=== PATIENT | female | born 1965 | race Caucasian/White ===

== ENCOUNTER 2016-12-06 08:12 | Emergency (ER) | payer OTHER ==
[2016-12-06 08:17] VITALS: RESP 16
[2016-12-06] MEDS ORDERED: ASPIRIN 81 MG PO STA (08:33)
[2016-12-06] MEDS ORDERED: NITROGLYCERIN OINT 1 INCH/GM PACKET TOPICAL STA (08:33)
--- NOTE | 2016-12-06 08:36 | ED ---
General Adult HPI - General Chief complaint: Chest Pain Stated complaint: CHEST PAIN Time Seen by Provider: 12/06/16 08:28 Source: patient, RN notes reviewed Mode of arrival: ambulatory Limitations: no limitations - History of Present Illness Initial comments: Patient is a pleasant 51-year-old female presenting to the emergency Department with chest discomfort. Symptoms have been occurring over the past 4 days. Patient does have episodes of chest discomfort lasting up to a half a minute. Discomfort is typically sharp. Patient is unclear if she has associated dyspnea. Patient states sometimes she is sweaty however sometimes it is normal for her. No specific nausea. No history of similar symptoms previously. Patient is currently symptom-free. Discomfort is left sternal region. - Related Data Home Medications Medication Instructions Recorded Confirmed Levothyroxine Sodium [Synthroid] 25 mcg PO DAILY 02/19/15 12/06/16 ALPRAZolam [Xanax] 0.25 mg PO DAILY PRN 12/06/16 12/06/16 Biotin 5 mg PO PC-LUNCH 12/06/16 12/06/16 Calcium Carbonate [Calcium] 600 mg PO PC-LUNCH 12/06/16 12/06/16 Cholecalciferol [Vitamin D3] 1,000 unit PO PC-LUNCH 12/06/16 12/06/16 Cyclobenzaprine [Flexeril] 10 mg PO HS PRN 12/06/16 12/06/16 Ferrous Sulfate [Feosol] 325 mg PO PC-LUNCH 12/06/16 12/06/16 Loratadine-Pseudoeph 10-240 mg 1 tab PO DAILY 12/06/16 12/06/16 [Claritin-D 24 Hour] Multivitamins, Thera [Multivitamin 1 tab PO PC-LUNCH 12/06/16 12/06/16 (formulary)] [place]-3 Fatty Acids/Fish Oil [Fish 1 cap PO PC-LUNCH 12/06/16 12/06/16 Oil 1,000 mg Softgel] Vitamin B Complex 1 cap PO PC-LUNCH 12/06/16 12/06/16 Allergies Allergy/AdvReac Type Severity Reaction Status Date / Time Sulfa (Sulfonamide Allergy Rash/Hives Verified 12/06/16 09:00 Antibiotics) Review of Systems ROS Statement: Those systems with pertinent positive or pertinent negative responses have been documented in the HPI. ROS Other: All systems not noted in ROS Statement are negative. Constitutional: Denies: fever Eyes: Denies: eye pain ENT: Denies: ear pain Respiratory: Denies: cough Cardiovascular: Reports: chest pain Endocrine: Denies: fatigue Gastrointestinal: Denies: abdominal pain, nausea Genitourinary: Denies: dysuria Musculoskeletal: Denies: as per HPI Skin: Denies: rash Neurological: Denies: weakness Past Medical History Past Medical History: Thyroid Disorder History of Any Multi-Drug Resistant Organisms: None Reported Past Surgical History: Section, Tubal Ligation Additional Past Surgical History / Comment(s): right carpal tunnel sx Past Psychological History: Anxiety Smoking Status: Never smoker Past Alcohol Use History: None Reported Past Drug Use History: None Reported General Exam Limitations: no limitations General appearance: alert, in no apparent distress Head exam: Present: atraumatic Eye exam: Present: normal appearance, PERRL ENT exam: Present: normal oropharynx Neck exam: Present: normal inspection Respiratory exam: Present: normal lung sounds bilaterally. Absent: chest wall tenderness Cardiovascular Exam: Present: regular rate, normal rhythm Expanded Peripheral pulses: 2+: Radial (R), Radial (L), Dorsalis Pedis (R), Dorsalis Pedis (L) GI/Abdominal exam: Present: soft. Absent: tenderness Extremities exam: Present: normal inspection. Absent: pedal edema, calf tenderness Neurological exam: Present: alert Psychiatric exam: Present: normal affect, normal mood Skin exam: Present: normal color Course Vital Signs 12/06/16 08:14 Temperature 98.6 F Pulse Rate 85 Respiratory 16 Rate Blood Pressure 122/70 O2 Sat by Pulse 100 Oximetry EKG Findings - EKG Comments: EKG Findings:: Normal sinus rhythm 88. OR 124. QRS 88. QT 332. QTC 425. Left axis. Low QRS voltage. No acute ST change. Medical Decision Making - Medical Decision Making Patient reexamined and resting comfortably in bed. Patient states she does not take any anticoagulation other than baby aspirin just the past few days. Patient is updated regarding results including elevation of INR and need for further evaluation regarding this. Patient is advised for admission for repeat testing and medicine and cardiology evaluation. Patient states she is to go home to diamond picker Her daughter. Patient is made aware of limitations of tests in the emergency department and does show buccal decision making. Patient is made aware that heart attack and risk for heart attack in the near future has not completely ruled out at this time. Patient is agreeable to follow-up with her doctor as well as her housecleaner floor. - Lab Data Result diagrams: 12/06/16 08:50 12/06/16 08:50 Lab Results 12/06/16 12/06/16 12/06/16 Range/Units 08:50 08:50 08:50 WBC 4.2 (3.8-10.6) k/uL RBC 4.37 (3.80-5.40) m/uL Hgb 13.5 (11.4-16.0) gm/dL Hct 42.2 (34.0-46.0) % MCV 96.4 (80.0-100.0) fL MCH 30.8 (25.0-35.0) pg MCHC 32.0 (31.0-37.0) g/dL RDW 12.4 (11.5-15.5) % Plt Count 332 (150-450) k/uL Neutrophils % 55 % Lymphocytes % 33 % Monocytes % 5 % Eosinophils % 5 % Basophils % 1 % Neutrophils # 2.3 (1.3-7.7) k/uL Lymphocytes # 1.4 (1.0-4.8) k/uL Monocytes # 0.2 (0-1.0) k/uL Eosinophils # 0.2 (0-0.7) k/uL Basophils # 0.0 (0-0.2) k/uL PT (9.0-12.0) sec INR (<1.2) APTT (22.0-30.0) sec D-Dimer (<0.60) mg/L FEU Sodium 142 (137-145) mmol/L Potassium 4.2 (3.5-5.1) mmol/L Chloride 107 (98-107) mmol/L Carbon Dioxide 23 (22-30) mmol/L Anion Gap 12 mmol/L BUN 12 (7-17) mg/dL Creatinine 0.75 (0.52-1.04) mg/dL Est GFR (MDRD) Af Amer >60 (>60 ml/min/1.73 sqM) Est GFR (MDRD) Non-Af >60 (>60 ml/min/1.73 sqM) Glucose 76 (74-99) mg/dL Calcium 9.8 (8.4-10.2) mg/dL Magnesium 2.0 (1.6-2.3) mg/dL Total Bilirubin 0.4 (0.2-1.3) mg/dL AST 28 (14-36) U/L ALT 26 (9-52) U/L Alkaline Phosphatase 54 (38-126) U/L Total Creatine Kinase 94 (30-135) U/L CK-MB (CK-2) 0.6 (0.0-2.4) ng/mL CK-MB (CK-2) Rel Index 0.6 Troponin I <0.012 (0.000-0.034) ng/mL Total Protein 7.4 (6.3-8.2) g/dL Albumin 4.2 (3.5-5.0) g/dL Urine Color Urine Appearance (Clear) Urine pH (5.0-8.0) Ur Specific [place] (1.001-1.035) Urine Protein (Negative) Urine Glucose (UA) (Negative) Urine Ketones (Negative) Urine Blood (Negative) Urine Nitrite (Negative) Urine Bilirubin (Negative) Urine Urobilinogen (<2.0) mg/dL Ur Leukocyte Esterase (Negative) 12/06/16 12/06/16 Range/Units 08:50 08:50 WBC (3.8-10.6) k/uL RBC (3.80-5.40) m/uL Hgb (11.4-16.0) gm/dL Hct (34.0-46.0) % MCV (80.0-100.0) fL MCH (25.0-35.0) pg MCHC (31.0-37.0) g/dL RDW (11.5-15.5) % Plt Count (150-450) k/uL Neutrophils % % Lymphocytes % % Monocytes % % Eosinophils % % Basophils % % Neutrophils # (1.3-7.7) k/uL Lymphocytes # (1.0-4.8) k/uL Monocytes # (0-1.0) k/uL Eosinophils # (0-0.7) k/uL Basophils # (0-0.2) k/uL PT 19.3 H (9.0-12.0) sec INR 2.0 H (<1.2) APTT 39.1 H (22.0-30.0) sec D-Dimer 0.30 (<0.60) mg/L FEU Sodium (137-145) mmol/L Potassium (3.5-5.1) mmol/L Chloride (98-107) mmol/L Carbon Dioxide (22-30) mmol/L Anion Gap mmol/L BUN (7-17) mg/dL Creatinine (0.52-1.04) mg/dL Est GFR (MDRD) Af Amer (>60 ml/min/1.73 sqM) Est GFR (MDRD) Non-Af (>60 ml/min/1.73 sqM) Glucose (74-99) mg/dL Calcium (8.4-10.2) mg/dL Magnesium (1.6-2.3) mg/dL Total Bilirubin (0.2-1.3) mg/dL AST (14-36) U/L ALT (9-52) U/L Alkaline Phosphatase (38-126) U/L Total Creatine Kinase (30-135) U/L CK-MB (CK-2) (0.0-2.4) ng/mL CK-MB (CK-2) Rel Index Troponin I (0.000-0.034) ng/mL Total Protein (6.3-8.2) g/dL Albumin (3.5-5.0) g/dL Urine Color Colorless Urine Appearance Clear (Clear) Urine pH 6.5 (5.0-8.0) Ur Specific [place] 1.002 (1.001-1.035) Urine Protein Negative (Negative) Urine Glucose (UA) Negative (Negative) Urine Ketones Negative (Negative) Urine Blood Negative (Negative) Urine Nitrite Negative (Negative) Urine Bilirubin Negative (Negative) Urine Urobilinogen <2.0 (<2.0) mg/dL Ur Leukocyte Esterase Negative (Negative) - Radiology Data Radiology results: image reviewed (Chest x-ray shows no acute process) Disposition Clinical Impression: Chest pain Disposition: Left Against Medical Advice Instructions: Chest Pain (ED) Additional Instructions: Please follow-up with your primary care physician and housecleaner floor within the next day for recheck and further evaluation. Also have your doctor recheck coagulation studies, INR secondary to elevation. Return for increased pain, worsening or change in symptoms, difficulty breathing, or any other concerns. You are leaving AGAINST MEDICAL ADVICE. Referrals: Matilda,Aman, MD [Primary Care Provider] - 1-2 days Time of Disposition: 09:56
[2016-12-06 09:12] LABS: Basophils % (A) 1 %; CHCM 32.3; Eosinophils # (A) 0.2 k/uL (0-0.7); Eosinophils % (A) 5 %; HCT 42.2 % (34.0-46.0); HDW 2.16; HGB 13.5 gm/dL (11.4-16.0); Luc # (Auto) 0.06; Luc % (Auto) 1; Lymphocytes # (A) 1.4 k/uL (1.0-4.8); Lymphocytes % (A) 33 %; MCH 30.8 pg (25.0-35.0); MCV 96.4 fL (80.0-100.0); Mean Platelet Volume 7.1; Monocytes # (A) 0.2 k/uL (0-1.0); Monocytes % (A) 5 %; Neutrophils # (A) 2.3 k/uL (1.3-7.7); Neutrophils % (A) 55 %; RBC 4.37 m/uL (3.80-5.40); RDW 12.4 % (11.5-15.5); WBC 4.2 k/uL (3.8-10.6); WBC (Perox) 4.32
--- NOTE | 2016-12-06 09:21 | XR ---
EXAMINATION TYPE: XR chest 2V DATE OF EXAM: 12/06/2016 COMPARISON: NONE HISTORY: Chest pain and shortness of breath TECHNIQUE: Frontal and lateral views of the chest are obtained. FINDINGS: There is no focal air space opacity, pleural effusion, or pneumothorax seen. The cardiac silhouette size is within normal limits. The osseous structures are intact. Minimal biapical pleura l-parenchymal thickening is noted. IMPRESSION: No acute cardiopulmonary process.
[2016-12-06 09:23] LABS: ALT 26 U/L (9-52); AST 28 U/L (14-36); Alkaline Phosphatase 54 U/L (38-126); Anion Gap 12 mmol/L; Blood Urea Nitrogen 12 mg/dL (7-17); Calcium 9.8 mg/dL (8.4-10.2); Carbon Dioxide 23 mmol/L (22-30); Chloride 107 mmol/L (98-107); Glucose 76 mg/dL (74-99); Non-African American GFR(MDRD) >60 (>60 ml/min/1.73 sqM); Potassium 4.2 mmol/L (3.5-5.1); Sodium 142 mmol/L (137-145); Total Bilirubin 0.4 mg/dL (0.2-1.3); Total Protein 7.4 g/dL (6.3-8.2)
[2016-12-06 09:26] LABS: Creatine Kinase 94 U/L (30-135)
[2016-12-06 09:30] LABS: Partial Thromboplastin Time 39.1 sec (22.0-30.0); Prothrombin Time 19.3 sec (9.0-12.0)
[2016-12-06 09:37] LABS: Appearance,Urine Clear (Clear); Bilirubin,Urine Negative (Negative); Glucose,Urine (UA) Negative (Negative); Ketones,Urine Negative (Negative); Leukocyte Esterase,Urine Negative (Negative); Nitrite,Urine Negative (Negative); PH, Urine 6.5 (5.0-8.0); Protein,Urine Negative (Negative); Specific Gravity,Urine 1.002 (1.001-1.035); UA Billing (MACRO vs. MICRO) CHEM; Urobilinogen,Urine <2.0 mg/dL (<2.0)
[2016-12-06 09:38] LABS: Creatine Kinase MB 0.6 ng/mL (0.0-2.4); Troponin I <0.012 ng/mL (0.000-0.034)
[2016-12-06 11:03] VITALS: BP 108/64; PULSE 77; TEMP 98.4
== END 2016-12-06 11:02 | disposition left against medical advice (07) ==
LOC: EC 08:12
DX: R07.9 Chest pain, unspecified (principal); E07.9 Disorder of thyroid, unspecified; Z79.899 Other long term (current) drug therapy; Z88.2 Allergy status to sulfonamides
CPT/HCPCS: 36415; 71020; 80053; 81003; 82550; 82553; 83735; 84484; 85025; 85379; 85610; 85730; 93005; 99285

== ENCOUNTER → 2017-01-03 | Outpatient (CLI) | payer OTHER ==
--- NOTE | 2017-01-03 17:08 | US ---
EXAMINATION TYPE: US MSK left ankle, posterior tibial tendon DATE OF EXAM: 01/03/2017 COMPARISON: NONE CLINICAL HISTORY: 51-year-old female with medial left foot pain for one month, evaluate for M76.821 P OSTERIOR TIBIAL TENDON TEAR. Technique: Multiple sonographic images of the medial left ankle targeting the posterior tibial tendon . FINDINGS: There is heterogeneity and hypoechoic appearance to the insertion of the posterior tibial tendon onto the navicular. Some bright speckles are present and small amount of adjacent fluid along the inferio r insertional fibers. Remainder of the posterior tibial tendon shows normal caliber and normal fibril lar pattern. IMPRESSION: Insertional posterior tibial tendinosis and suggestion of a tiny insertional tear of some of the infe rior most fibers at the navicular.
== END | disposition home or self-care (01) ==
LOC: RADUSWWP 09:35
PROVIDERS: ATTEND Podiatrist Foot & Ankle Surgery
DX: M76.822 Posterior tibial tendinitis, left leg (principal)

== ENCOUNTER → 2017-03-17 | Outpatient (CLI) | payer OTHER ==
--- NOTE | 2017-03-17 09:35 | US ---
EXAMINATION TYPE: US pelvic complete DATE OF EXAM: 03/17/2017 COMPARISON: NONE CLINICAL HISTORY: R10.2 Pelvic Pain; Midline pelvic pain x 2 weeks; G4P; C section x ; LMP < one year ago September 2016 TECHNIQUE: Transabdominal (TA) Date of LMP: September 2016 EXAM MEASUREMENTS: Uterus: 10.5 x 5.7 x 4.9 cm Endometrial Stripe: 0.9 cm Right Ovary: 2.6 x 1.6 x 1.7 cm Left Ovary: 2.0 x 1.6 x 0.9 cm 1. Uterus: Anteverted 2. Endometrium: unable to correlate with LMP 5 months ago as is not truly post menopause 3. Right Ovary: Dominant ovarian follicle = 1.5 x 1.0 x 1.2cm 4. Left Ovary: small follicles are seen Spectral, color and waveform Doppler imaging shows good arterial and venous flow within the ovaries ; there is no evidence for ovarian torsion. 5. Bilateral Adnexa: wnl 6. Posterior cul-de-sac: wnl Nabothian cyst is incidentally noted within the cervix. IMPRESSION: Endometrial thickness is within normal limits for a premenopausal female but increased th ickness for a postmenopausal female. Therefore this is borderline and a perimenopausal female. If the re is further concern or vaginal bleeding direct visualization or sonohysterogram could be performed for further evaluation.
== END | disposition home or self-care (01) ==
LOC: RADUSWWP 07:00
PROVIDERS: ATTEND Obstetrics & Gynecology
DX: N95.9 Unspecified menopausal and perimenopausal disorder (principal); R93.8 Abnormal findings on diagnostic imaging of other specified body structures
CPT/HCPCS: 76856

== ENCOUNTER 2017-06-18 18:11 | Emergency (ER) | payer OTHER ==
[2017-06-18 18:45] VITALS: RESP 18
--- NOTE | 2017-06-18 19:19 | XR ---
EXAMINATION TYPE: XR ankle complete RT, XR foot complete RT DATE OF EXAM: 06/18/2017 COMPARISON: NONE HISTORY: Pain TECHNIQUE: Frontal, lateral and oblique images of the right ankle are obtained. COMPARISON: None. FINDINGS: There is no acute fracture/dislocation evident. The joint spaces appear within normal richards its. Lateral soft tissue swelling noted. IMPRESSION: There is no acute fracture or dislocation seen. EXAMINATION TYPE: XR ankle complete RT, XR foot complete RT DATE OF EXAM: 06/18/2017 CLINICAL HISTORY: pain TECHNIQUE: Frontal, lateral and oblique images of the right foot are obtained. COMPARISON: None. FINDINGS: There is no acute fracture/dislocation evident. The joint spaces appear within normal richards its. The overlying soft tissue appears unremarkable. IMPRESSION: There is no acute fracture or dislocation. ICD 10 NO FRACTURE, INITIAL EVALUATION
[2017-06-18] MEDS ORDERED: KETOROLAC 30 MG/ML 1 ML VIAL IM STA (19:36)
--- NOTE | 2017-06-18 19:36 | ED ---
General Adult HPI - General Chief complaint: Extremity Injury, Lower Stated complaint: Ankle injury Time Seen by Provider: 06/18/17 19:08 Source: patient, RN notes reviewed Mode of arrival: ambulatory Limitations: no limitations - History of Present Illness Initial comments: 52-year-old female presents to the emergency department for a chief complaint of right ankle injury one hour ago. Patient states she was walking down her last step when she rolled her ankle. Patient denies falling or hitting her head. Patient denies pain in the knee or hip. Patient states she has mild pain in the foot. Patient has never had surgery on the ankle. Patient denies any neck or back pain. Patient denies any headache or visual changes. Patient denies any other complaints at this time such as shortness of breath, chest pain , abdominal pain, nausea or vomiting. - Related Data Home Medications Medication Instructions Recorded Confirmed Levothyroxine Sodium [Synthroid] 25 mcg PO DAILY 02/19/15 12/06/16 ALPRAZolam [Xanax] 0.25 mg PO DAILY PRN 12/06/16 12/06/16 Biotin 5 mg PO PC-LUNCH 12/06/16 12/06/16 Calcium Carbonate [Calcium] 600 mg PO PC-LUNCH 12/06/16 12/06/16 Cholecalciferol [Vitamin D3] 1,000 unit PO PC-LUNCH 12/06/16 12/06/16 Cyclobenzaprine [Flexeril] 10 mg PO HS PRN 12/06/16 12/06/16 Ferrous Sulfate [Feosol] 325 mg PO PC-LUNCH 12/06/16 12/06/16 Loratadine-Pseudoeph 10-240 mg 1 tab PO DAILY 12/06/16 12/06/16 [Claritin-D 24 Hour] Multivitamins, Thera [Multivitamin 1 tab PO PC-LUNCH 12/06/16 12/06/16 (formulary)] [place]-3 Fatty Acids/Fish Oil [Fish 1 cap PO PC-LUNCH 12/06/16 12/06/16 Oil 1,000 mg Softgel] Vitamin B Complex 1 cap PO PC-LUNCH 12/06/16 12/06/16 Allergies Allergy/AdvReac Type Severity Reaction Status Date / Time Sulfa (Sulfonamide Allergy Rash/Hives Verified 12/06/16 09:00 Antibiotics) Review of Systems ROS Statement: Those systems with pertinent positive or pertinent negative responses have been documented in the HPI. ROS Other: All systems not noted in ROS Statement are negative. Past Medical History Past Medical History: Thyroid Disorder History of Any Multi-Drug Resistant Organisms: None Reported Past Surgical History: Section, Tubal Ligation Additional Past Surgical History / Comment(s): right carpal tunnel sx Past Psychological History: Anxiety Smoking Status: Never smoker Past Alcohol Use History: None Reported Past Drug Use History: None Reported General Exam Limitations: no limitations General appearance: alert, in no apparent distress Respiratory exam: Present: normal lung sounds bilaterally. Absent: respiratory distress, wheezes, rales, rhonchi, stridor Cardiovascular Exam: Present: regular rate, normal rhythm, normal heart sounds. Absent: systolic murmur, diastolic murmur, rubs, gallop, clicks Extremities exam: Present: tenderness (Tenderness to the lateral aspect of the right ankle on the lateral malleolus. No medial malleolus tenderness. No navicular or fifth metatarsal tenderness. No tenderness in the tib-fib knee or the rest of the foot.), normal capillary refill (Refill less than 2 seconds and pedal dull pulse 2+ in the right lower extremity), other (Patient has moderate swelling and ecchymosis noted on the lateral malleolus of the right ankle). Absent: full ROM (Patient has limited flexion and medial and lateral deviation in the right ankle), calf tenderness (No tenderness in the calf. No redness swelling or warmth.) Course Vital Signs 06/18/17 18:40 Temperature 98.2 F Pulse Rate 88 Respiratory 18 Rate Blood Pressure 119/78 O2 Sat by Pulse 99 Oximetry Procedures - Procedures Initial comment: Neurovascular intact before splint application Indication:ankle sprain Type: short leg right stirrup Wounds: no abrasions or lacerations underneath splint Neurovascular status: patient has sensation and movement of digits extending outside the splint, there is no cyanosis, capillary refill < 2 seconds Follow-up: patient given number for orthopedics and instructed to phone to make an appointment. Patient aware she can return to the Emergency Department if any difficulties. Medical Decision Making - Medical Decision Making 52-year-old female presents to the emergency department for a chief complaint of right lower extremity injury. Patient rolled her ankle about an hour ago coming down her stairs. On exam there is moderate swelling and ecchymosis noted of the lateral malleolus. Tenderness of the lateral malleolus. No tenderness of the medial malleolus or the rest of the foot or right lower extremity. Patient is not able to walk on it. Patient has limited range of motion of the ankle. Neurovascular intact including sensation. X-ray demonstrates There is no acute fracture or dislocation evident in the right ankle. Lateral soft tissue swelling noted. X-ray of the right foot demonstrates no acute fracture or dislocation. Patient was splinted in a short leg stirrup splint. Neurovascular intact before and after splint applied. Patient was given a shot of Toradol in the emergency department. She was educated to only take Tylenol for the rest of the night and to continue with Tylenol and Motrin tomorrow. She was educated to elevated rest and ice it. She will follow-up with orthopedics in one to 2 days. She will return to the emergency Department if she has any worsening symptoms. Disposition Clinical Impression: Ankle sprain Disposition: HOME SELF-CARE Condition: Good Instructions: Ankle Sprain (ED) Additional Instructions: Please take Tylenol for the rest of the night for pain. You may take Motrin and Tylenol tomorrow. Please follow-up with orthopedics in one to 2 days. Please remember to ice, rest, and elevate the affected leg. Return to the emergency department if you have any worsening symptoms. Is patient prescribed a controlled substance at d/c from ED?: No Referrals: Aman Grey MD [Primary Care Provider] - 1-2 days Taawnda Bai MD [STAFF PHYSICIAN] - 1-2 days Time of Disposition: 19:38
[2017-06-18 19:58] VITALS: BP 115/73; PULSE 82; TEMP 97.9
== END 2017-06-18 19:54 | disposition home or self-care (01) ==
LOC: EC 18:11
DX: S93.401A Sprain of unspecified ligament of right ankle, initial encounter (principal); E07.9 Disorder of thyroid, unspecified; Z79.899 Other long term (current) drug therapy; Z88.2 Allergy status to sulfonamides; Z53.29 Procedure and treatment not carried out because of patient's decision for other reasons; X50.1XXA Overexertion from prolonged static or awkward postures, initial encounter; Y93.01 Activity, walking, marching and hiking; Y92.009 Unspecified place in unspecified non-institutional (private) residence as the place of occurrence of the external cause
CPT/HCPCS: 73610; 73630; 99283; 29515; 96372; J1885

== ENCOUNTER → 2017-08-04 | Outpatient (CLI) | payer OTHER ==
--- NOTE | 2017-08-04 15:43 | US ---
EXAMINATION TYPE: US pelvic complete DATE OF EXAM: 08/04/2017 COMPARISON: US CLINICAL HISTORY: R10.2 Pelvic pain,N83.20 Previous ovarian cyst. Pt states ongoing pelvic pain, prev ious ovarian cyst TECHNIQUE: Transabdominal (TA). Date of LMP: September 2016 EXAM MEASUREMENTS: Uterus: 10.7 x 5.7 x 6.2 cm Endometrial Stripe: 0.9 cm with fluid in canal= 0.8 x 1.9 x 2.7 cm Right Ovary: 2.6 x 1.7 x 2.0 cm Left Ovary: 2.1 x 1.2 x 1.7 cm 1. Uterus: Anteverted Heterogeneous 2. Endometrium: fluid within canal, thickness abnormal for postmenopausal 3. Right Ovary: wnl, cyst resolved 4. Left Ovary: wnl 5. Bilateral Adnexa: wnl 6. Posterior cul-de-sac: wnl IMPRESSION: 1. Again abnormal endometrial thickness is noted for a postmenopausal female and fluid is seen within the endometrial canal, also abnormal for a postmenopausal female. Direct visualization is recommende d. 2. Resolution of the previously seen right ovarian follicle.
== END | disposition home or self-care (01) ==
LOC: RADUSWWP 14:45
PROVIDERS: ATTEND Obstetrics & Gynecology
DX: R93.8 Abnormal findings on diagnostic imaging of other specified body structures (principal); Z78.0 Asymptomatic menopausal state; R10.2 Pelvic and perineal pain
CPT/HCPCS: 76856

== ENCOUNTER → 2017-11-03 | Outpatient (CLI) | payer OTHER ==
--- NOTE | 2017-11-03 11:12 | CT ---
EXAMINATION TYPE: CT brain wo con DATE OF EXAM: 11/03/2017 COMPARISON: 12/15/2012 HISTORY: Headache and facial pain CT DLP: [address] of the brain was performed. The ventricles, basal cisterns and sulci overlying the cerebral convexities demonstrate a normal appe arance. There is no evidence for intracranial hemorrhage or sulcal effacement. No mass effects are seen. Osseous calvarium is intact. If symptoms persist consider MRI as clinically warranted. IMPRESSION: 1. No acute intracranial process is seen at this time.
== END | disposition home or self-care (01) ==
LOC: RADCTMAIN 10:19
PROVIDERS: ATTEND Physician Assistant
DX: R51 Headache (principal)
CPT/HCPCS: 70450

== ENCOUNTER → 2021-09-18 | Outpatient (CLI) | payer MEDICARE, OTHER ==
--- NOTE | 2021-09-19 05:31 | MR ---
EXAMINATION TYPE: MR knee LT wo con DATE OF EXAM: 09/18/2021 COMPARISON: None HISTORY: Left inner, outer and top of knee pain with swelling for 3 months. Multiplanar multiecho imaging of the left knee with no contrast. The anterior and posterior cruciate ligaments are intact. There is mild knee joint effusion. There is subcutaneous edema anterior to the patella. The collateral ligaments appear intact. There is joint e ffusion bulging me lateral collateral ligament. There is complex horizontal and vertical tear of the posterior horn medial meniscus with some thinnin g. There is minimal truncation of the posterior horn of the lateral meniscus. There is minor spurring of the femoral and tibial condyles. No evidence of a fracture. No bone edema. Patella appears intact . IMPRESSION: Knee joint effusion. Complex tear posterior horn medial meniscus. Horizontal and vertical tear customer solutions specialist ior horn lateral meniscus. No evidence of ligamentous tear. Subcutaneous edema.
== END | disposition home or self-care (01) ==
LOC: RADMRIMAIN 18:11
PROVIDERS: ATTEND Orthopaedic Surgery
DX: M23.322 Other meniscus derangements, posterior horn of medial meniscus, left knee (principal)

== ENCOUNTER 2022-04-06 07:18 | Day surgery (SDC) | payer MEDICARE, OTHER ==
[2022-04-02 17:31] VITALS: BMI 20.7
[~2022-04-06 07:18] MED LIST: LACTATED RINGERS 1,000 ML IV SCH
[2022-04-06 07:43] VITALS: TEMP 98
[2022-04-06] MEDS ORDERED: LACTATED RINGERS 1,000 ML IV ONE (07:45)
[2022-04-06] MEDS ORDERED: fentaNYL (PF) 50 MCG/ML 2 ML AMP ONE (09:02)
[2022-04-06] MEDS ORDERED: MIDAZOLAM 2 MG/2 ML VIAL ONE (09:02)
[2022-04-06] MEDS ORDERED: PROPOFOL 10 MG/ML 20 ML VIAL IV ONE (09:02)
--- NOTE | 2022-04-06 09:25 | P.PCN ---
Date of Procedure: 04/06/22 Procedure(s) Performed: BRIEF HISTORY: Patient is a 57-year-old pleasant white female scheduled for an elective colonoscopy as a part of a for colon cancer/positive cologuard. She also has family history of colon cancer diagnosed in her father at age 75. PROCEDURE PERFORMED: Colonoscopy. PREOPERATIVE DIAGNOSIS: Screening for colon cancer/family history of colon cancer/positive cologuard. IV sedation per Anesthesia. PROCEDURE: After informed consent was obtained, the patient, was brought into the endoscopy unit. IV sedation was administered by Anesthesia under continuous monitoring. Digital rectal examination was normal. Initially the Olympus CF-160 flexible video colonoscope was then inserted in the rectum, gradually advanced into the cecum without any difficulty. Careful examination was performed as the scope was gradually being withdrawn. Ileocecal valve and the appendiceal orifice were visualized and appeared normal. Prep was excellent. Mucosa of the cecum, ascending colon, transverse colon, descending colon, sigmoid colon, and rectum appeared normal. Scattered sigmoid diverticulosis seen. Retroflexion was performed in the rectum and small internal hemorrhoids were seen. The patient tolerated the procedure well. IMPRESSION: Normal-appearing colon from rectum to cecum no evidence of colorectal neoplasia Sigmoid diverticulosis and small internal hemorrhoids RECOMMENDATIONS: Findings of this examination were discussed with the patient as well as a family. He was advised to have a repeat screening colonoscopy every 5 years because of the family history of colon cancer..
[2022-04-06 09:46] VITALS: BP 104/72; PULSE 68; RESP 15
== END 2022-04-06 10:21 | disposition home or self-care (01) ==
LOC: ORWHC2ENDO 07:18
PROVIDERS: ATTEND Internal Medicine Gastroenterology
DX: Z12.11 Encounter for screening for malignant neoplasm of colon (principal); R19.5 Other fecal abnormalities; Z80.0 Family history of malignant neoplasm of digestive organs
CPT/HCPCS: 45378; J2250; J3010; J2704